=== PATIENT | male | born 1955 | race Caucasian/White ===

== ENCOUNTER 2022-11-21 21:21 | Outpatient (CLI) | payer BC, MEDICARE | END 2022-11-21 23:59 | disposition critical access hospital (66) | LOC: EMS 21:21 | DX: G89.3 Neoplasm related pain (acute) (chronic) (principal); R06.02 Shortness of breath | CPT/HCPCS: A0425; A0427 ==

== ENCOUNTER 2022-11-21 21:47 | Emergency (ER) | payer BC, MEDICARE ==
[2022-11-21 21:56] VITALS: BP 120/79
[2022-11-21] MEDS ORDERED: oxyCODONE/ACET 5/325 Prepack 4 PO STA (22:35)
--- NOTE | 2022-11-21 22:37 | ED Physician Documentation ---
PD HPI ABD PAIN - Stated complaint Stated Complaint: SOA/ABD PX - Chief complaint Chief Complaint: Abd Pain - History obtained from History obtained from: Patient - Additional information Additional information: 67yM on hospice p/w acute on chronic abdominal pain from metastatic disease. patient asymptomatic on arrival to ed after receiving 150ucg fentanyl by ems. Review of Systems GI: reports: Abdominal Pain PD PAST MEDICAL HISTORY - Past Medical History Past Medical History: Yes Other Past Medical History: liver cancer - Past Surgical History Past Surgical History: Yes - Present Medications Home Medications: Ambulatory Orders Medication Instructions Recorded Confirmed LORazepam [Ativan] 0.5 mg PO Q6H PRN #10 tablet 11/21/22 Methadone [Methadone Hcl] 5 mg PO Q8H PRN #15 tablet 11/21/22 oxyCODONE [Roxicodone] 5 mg PO Q4-6H PRN #15 tablet 11/21/22 - Allergies Allergies/Adverse Reactions: Allergies Allergy/AdvReac Type Severity Reaction Status Date / Time No Known Drug Allergies Allergy Verified 11/21/22 21:57 - Social History Does the pt smoke?: No Smoking Status: Never smoker Does the pt drink ETOH?: No Does the pt have substance abuse?: No - Immunizations Immunizations are current?: Yes - POLST Patient has POLST: No PD ED PE NORMAL - Vitals Vital signs reviewed: Yes - General General: Alert and oriented X 3, No acute distress, Other (cachectic appearing) - HEENT HEENT: Atraumatic, PERRL, EOMI - Abdomen Abdomen: Non tender Results - Vitals Vitals: Oxygen O2 Source Room air PD Medical Decision Making - ED course ED course: 67yM presented with acute on chronic abdominal pain. He has metastatic disease and had been on hospice but was off of it for a procedure and does not have adequate pain medication at home. I provided him with prescriptions. Plan to f/u outpatient hospice. Departure - Departure Disposition: 01 Home, Self Care Clinical Impression: Chronic abdominal pain Condition: Stable Instructions: Hospice Pain Management Prescriptions: LORazepam [Ativan] 0.5 mg PO Q6H PRN #10 tablet PRN Reason: Anxiety Methadone [Methadone Hcl] 5 mg PO Q8H PRN #15 tablet PRN Reason: Pain oxyCODONE [Roxicodone] 5 mg PO Q4-6H PRN #15 tablet PRN Reason: Pain Comments: You were seen in the emergency department for pain management of your chronic abdominal pain. You got 150 mcg of fentanyl IV by EMS and a Percocet prepack to take home for months. A prescription was sent to [facility] in [place] electronically for oxycodone, methadone, and lorazepam. Follow-up with your hospice care provider and return to the emergency department if you have other concerns. Discharge Date/Time: 11/21/22 23:24
[2022-11-21] MEDS ORDERED: fentaNYL 100 MCG/2 ML VIAL IVP STA (22:53)
== END 2022-11-21 23:24 | disposition home or self-care (01) ==
LOC: EDUNIT# → ED 21:47
DX: R10.9 Unspecified abdominal pain (principal); G89.29 Other chronic pain; C22.9 Malignant neoplasm of liver, not specified as primary or secondary
CPT/HCPCS: 96374; 99284